=== PATIENT | female | born 1985 | race Hispanic/Latino ===

== ENCOUNTER 2018-05-21 17:35 | Emergency (ER) | payer SELFPAY ==
[2018-05-21 18:53] LABS: Absolute Lymphocytes (CBC) 2.1 K/uL (0.7-4.9); Absolute Monocytes 0.7 K/uL (0.1-1.3); Absolute Neutrophil 3.9 K/uL (1.8-8.0); Basophils % 0.9 % (0-1.3); Lymphocytes % 30.1 % (15.3-44.8); Monocytes % 10.9 % (3.3-12.3); RBC Red Blood Cell Count 4.17 M/uL (3.86-4.86)
[2018-05-21 19:15] LABS: ALT/SGPT 21 U/L (12-78); AST/SGOT 15 U/L (15-37); Albumin 4.1 g/dL (3.4-5.0); Alkaline Phosphatase 65 U/L (45-117); BUN Blood Urea Nitrogen 9 mg/dL (7-18); Bicarbonate 29 mmol/L (21-32); Bilirubin Direct 0.1 mg/dL (0-0.2); Bilirubin Total 0.4 mg/dL (0.2-1.0); Glucose Level 71 mg/dL (74-106); Lipase 112 U/L (73-393); Potassium 3.5 mmol/L (3.5-5.1); Sodium Level 138 mmol/L (136-145)
--- NOTE | 2018-05-21 19:47 | RAD REPORT ---
EXAM DESCRIPTION: CTAbdomen Pelvis W Contrast - 05/21/2018 7:32 pm CLINICAL HISTORY: Abdominal pain. LLQ pain COMPARISON: No comparisons TECHNIQUE: Biphasic CT imaging of the abdomen and pelvis was performed with 100 ml non-ionic IV cont rast. All CT scans are performed using dose optimization technique as appropriate and may include automated exposure control or mA/KV adjustment according to patient size. FINDINGS: The lung bases are clear. The liver, spleen, pancreas, adrenal glands and kidneys are within normal limits. No bowel obstruction, free air, free fluid or abscess. Prominent stool is present in the colon. The a ppendix is normal. No evidence of significant lymphadenopathy. No suspicious bony findings. Several left ovarian follicles noted. IMPRESSION: No acute intra-abdominal or pelvic finding.
--- NOTE | 2018-05-21 20:15 | EDPHYS ---
Physician Documentation [facility] Name: Chang Benoit Age: 32 yrs Sex: Female : 1985 Arrival Date: 05/21/2018 Time: 17:39 Bed 8 Private MD: Yamil Brito T ED Physician Mika Mello HPI: 05/21 18:32 This 32 yrs old Female presents to ER via Ambulatory with complaints of pm1 Abdominal Pain, Possible . 18:32 The patient presents with abdominal pain. Onset: The symptoms/episode began/occurred pm1 this morning. The symptoms do not radiate. Associated signs and symptoms: Pertinent negatives: nausea, vomiting, and diarrhea, dysuria, fever. The symptoms are described as sharp. Modifying factors: The symptoms are alleviated by nothing, the symptoms are aggravated by bimanual examination. Severity of pain: in the emergency department the pain is actually worse. The patient has not experienced similar symptoms in the past. The patient has been recently seen by a physician: Dr. Brito. Patient presenting today with LLQ abdominal pain that started this AM. Went to Dr. Brito's office for refill of her anxiety medications and was examined for the abdominal pain. Pelvic examination performed and patient with increased pain to left lower quadrant during bimanual examination to left side. Patient sent to the ER for rule out ectopic . Patient not with UPT done in the ER. Historical: - Allergies: 18:08 No Known Allergies; hb - Home Meds: 18:08 Xanax Oral [Active]; hb - PMHx: 18:08 Anxiety; hb - PSHx: 18:08 ankle - right; hb - Immunization history:: Adult Immunizations up to date. - Social history:: Smoking status: Patient/guardian denies using tobacco. - Ebola Screening: : No symptoms or risks identified at this time. ROS: 18:36 Constitutional: Negative for fever, chills, and weight loss, Eyes: Negative for injury, pm1 pain, redness, and discharge, ENT: Negative for injury, pain, and discharge, Neck: Negative for injury, pain, and swelling, Cardiovascular: Negative for chest pain, palpitations, and edema, Respiratory: Negative for shortness of breath, cough, wheezing, and pleuritic chest pain. 18:36 Back: Negative for injury and pain, : Negative for injury, bleeding, discharge, and swelling, MS/Extremity: Negative for injury and deformity, Skin: Negative for injury, rash, and discoloration, Neuro: Negative for headache, weakness, numbness, tingling, and seizure. 18:36 Abdomen/GI: Positive for abdominal pain, Negative for nausea, vomiting, and diarrhea. Exam: 18:36 Constitutional: This is a well developed, well nourished patient who is awake, alert, pm1 and in no acute distress. Head/Face: Normocephalic, atraumatic. Eyes: Pupils equal round and reactive to light, extra-ocular motions intact. Lids and lashes normal. Conjunctiva and sclera are non-icteric and not injected. Cornea within normal limits. Periorbital areas with no swelling, redness, or edema. ENT: Nares patent. No nasal discharge, no septal abnormalities noted. Tympanic membranes are normal and external auditory canals are clear. Oropharynx with no redness, swelling, or masses, exudates, or evidence of obstruction, uvula midline. Mucous membranes moist. Neck: Trachea midline, no thyromegaly or masses palpated, and no cervical lymphadenopathy. Supple, full range of motion without nuchal rigidity, or vertebral point tenderness. No Meningismus. Chest/axilla: Normal chest wall appearance and motion. Nontender with no deformity. No lesions are appreciated. Cardiovascular: Regular rate and rhythm with a normal S1 and S2. No gallops, murmurs, or rubs. Normal PMI, no JVD. No pulse deficits. Respiratory: Lungs have equal breath sounds bilaterally, clear to auscultation and percussion. No rales, rhonchi or wheezes noted. No increased work of breathing, no retractions or nasal flaring. 18:36 Back: No spinal tenderness. No costovertebral tenderness. Full range of motion. Skin: Warm, dry with normal turgor. Normal color with no rashes, no lesions, and no evidence of cellulitis. MS/ Extremity: Pulses equal, no cyanosis. Neurovascular intact. Full, normal range of motion. 18:36 Abdomen/GI: Inspection: abdomen appears normal, Bowel sounds: normal, Palpation: soft, mild abdominal tenderness, in the left lower quadrant, mass, is not appreciated, rebound tenderness, is not appreciated. 18:36 Neuro: Orientation: is normal, Motor: is normal, moves all fours, strength is normal, strength is 5/5 in all extremities, Sensation: is normal, no obvious gross deficits, Gait: is steady, at a normal pace, without difficulty. Vital Signs: 18:07 BP 152 / 102; Pulse 92; Resp 16; Temp 97.8; Pulse Ox 100% on R/A; Weight 53.98 kg; hb Height 5 ft. 1 in. (154.94 cm); Pain 7/10; 20:30 BP 130 / 90; Pulse 87; Resp 18; Pulse Ox 100% on R/A; tl2 18:07 Body Mass Index 22.48 (53.98 kg, 154.94 cm) hb MDM: 18:27 Patient medically screened. pm1 18:37 Data reviewed: vital signs. Data interpreted: Pulse oximetry: on room air is 100 %. pm1 Interpretation: normal. 20:13 Counseling: I had a detailed discussion with the patient and/or guardian regarding: the pm1 historical points, exam findings, and any diagnostic results supporting the discharge/admit diagnosis, lab results, radiology results, the need for outpatient follow up, to return to the emergency department if symptoms worsen or persist or if there are any questions or concerns that arise at home. 05/21 18:27 Order name: Urine Dipstick--Ancillary (enter results) 05/21 18:27 Order name: Urine --Ancillary (enter results) 05/21 18:31 Order name: Basic Metabolic Panel; Complete Time: 20:01 pm05/21 18:31 Order name: CBC with Diff; Complete Time: 20: pm05/21 18:31 Order name: Creatinine for Radiology; Complete Time: 20: pm05/21 18:31 Order name: Hepatic Function; Complete Time: 20:01 pm05/21 18:19 Order name: Urine Dipstick-Ancillary (obtain specimen); Complete Time: 18:21 pm05/21 18:19 Order name: Urine Test (obtain specimen); Complete Time: 18:21 pm05/21 18:31 Order name: Lipase; Complete Time: 20:01 pm05/21 18:31 Order name: IV Saline Lock; Complete Time: 18:34 pm05/21 18:31 Order name: Labs collected and sent; Complete Time: 18:34 pm1 05/21 18:31 Order name: CT Abd/Pelvis - W/Contrast: IV contrast only; Complete Time: 20:01 pm1 Administered Medications: 20:25 Drug: TORadol 30 mg Route: IVP; Infused Over: 2 mins; Site: right antecubital; tl1 20:54 Follow up: Response: No adverse reaction; Pain is decreased tl2 Disposition: 05/21/18 20:14 Discharged to Home. Impression: Unspecified abdominal pain. - Condition is Stable. - Discharge Instructions: Abdominal Pain, Adult. - Prescriptions for Diclofenac Sodium 75 mg Oral Tablet Sustained Release - take 1 tablet by ORAL route 2 times per day; 30 tablet. - Medication Reconciliation Form, Thank You Letter form. - Follow up: Emergency Department; When: As needed; Reason: Worsening of condition. Follow up: Private Physician; When: 2 - 3 days; Reason: Recheck today's complaints, Continuance of care, Re-evaluation by your physician. - Problem is new. - Symptoms have improved. Addendum: 05/24/2018 07:17 Co-signature as Attending Physician, Mika Mello MD I agree with the assessment and k dr plan of care. Signatures: Dispatcher [employer] EDMS Mika Mello MD MD [facility] Patti Busby RN RN tl1 Xiang Ledbetter NP CONCRETE VIBRATOR OPERATOR pm1 Dalia Jasso RN RN Chelsea Dias RN RN tl2 Corrections: (The following items were deleted from the chart) 05/21 20:54 20:14 05/21/2018 20:14 Discharged to Home. Impression: Unspecified abdominal pain. tl2 Condition is Stable. Forms are Medication Reconciliation Form, Thank You Letter, Antibiotic Education, Prescription Opioid Use. Follow up: Emergency Department; When: As needed; Reason: Worsening of condition. Follow up: Private Physician; When: 2 - 3 days; Reason: Recheck today's complaints, Continuance of care, Re-evaluation by your physician. Problem is new. Symptoms have improved. pm1
--- NOTE | 2018-05-21 20:15 | ER ---
Nurse's Notes [facility] Name: Chang Benoit Age: 32 yrs Sex: Female : 1985 Arrival Date: 05/21/2018 Time: 17:39 Bed 8 Private MD: Yamil Brito T Diagnosis: Unspecified abdominal pain Presentation: 05/21 18:05 Presenting complaint: Sent by Dr. Brito to r/o ectopic . Pt reports pain in LLQ hb and left lower back during exam at Dr. Brito's office, LMP 04/05/18. Transition of care: patient was not received from another setting of care. Onset of symptoms was May 21, 2018. Risk Assessment: Do you want to hurt yourself or someone else? Patient reports no desire to harm self or others. Care prior to arrival: None. 18:05 Method Of Arrival: Ambulatory hb 18:05 Acuity: ELSA 3 hb 18:37 Initial Sepsis Screen: Does the patient meet any 2 criteria? No. Patient's initial tl2 sepsis screen is negative. Does the patient have a suspected source of infection? No. Patient's initial sepsis screen is negative. Historical: - Allergies: 18:08 No Known Allergies; hb - Home Meds: 18:08 Xanax Oral [Active]; hb - PMHx: 18:08 Anxiety; hb - PSHx: 18:08 ankle - right; hb - Immunization history:: Adult Immunizations up to date. - Social history:: Smoking status: Patient/guardian denies using tobacco. - Ebola Screening: : No symptoms or risks identified at this time. Screenin:35 Abuse screen: Denies threats or abuse. Nutritional screening: No deficits noted. tl2 Tuberculosis screening: No symptoms or risk factors identified. Fall Risk None identified. Assessment: 18:35 General: Appears in no apparent distress. uncomfortable, Behavior is calm, cooperative, tl2 appropriate for age. Pain: Complains of pain in left lower quadrant. Neuro: Level of Consciousness is awake, alert, obeys commands, Oriented to person, place, time, situation. Cardiovascular: Denies chest pain. Respiratory: Airway is patent Respiratory effort is even, unlabored, Respiratory pattern is regular, symmetrical. GI: Bowel sounds present X 4 quads. Abd is soft Abdomen is tender to palpation in left lower quadrant Patient currently denies constipation, diarrhea, nausea, vomiting. : Denies burning with urination, vaginal bleeding. Derm: Skin is pink, warm \T\ dry. 19:30 Reassessment: Patient appears in no apparent distress at this time. Patient and/or tl2 family updated on plan of care and expected duration. Pain level reassessed. Patient is alert, oriented x 3, equal unlabored respirations, skin warm/dry/pink. 20:30 Reassessment: Patient appears in no apparent distress at this time. Patient and/or tl2 family updated on plan of care and expected duration. Pain level reassessed. Patient is alert, oriented x 3, equal unlabored respirations, skin warm/dry/pink. pt verbalized understanding of discharge instructions, need for follow up. Vital Signs: 18:07 BP 152 / 102; Pulse 92; Resp 16; Temp 97.8; Pulse Ox 100% on R/A; Weight 53.98 kg; hb Height 5 ft. 1 in. (154.94 cm); Pain 7/10; 20:30 BP 130 / 90; Pulse 87; Resp 18; Pulse Ox 100% on R/A; tl2 18:07 Body Mass Index 22.48 (53.98 kg, 154.94 cm) hb ED Course: 17:39 Patient arrived in ED. mr 17:40 Yamil Brito MD is Private Physician. mr 18:07 Triage completed. hb 18:08 Arm band placed on. hb 18:19 Xiang Ledbetter NP is PHCP. pm1 18:19 Mika Mello MD is Attending Physician. pm1 18:33 Radiology exam delayed due to lab results not completed at this time. (BUN/Creatinine). vm2 18:34 Chelsea Dias, GENARO is Primary Nurse. tl2 18:35 Patient has correct armband on for positive identification. Placed in gown. Bed in low tl2 position. Call light in reach. Side rails up X 1. Adult w/ patient. 18:35 Inserted saline lock: 20 gauge in right antecubital area, using aseptic technique. tl2 Blood collected. 19:01 Radiology exam delayed due to lab results not completed at this time. (BUN/Creatinine). nj 19:[address] via wheelchair. vm2 19:29 CT completed. Patient tolerated procedure well. Patient moved back from CT. vm2 19:32 CT Abd/Pelvis - W/Contrast: IV contrast only In Process Unspecified. EDMS 20:30 No provider procedures requiring assistance completed. IV discontinued, intact, tl2 bleeding controlled, No redness/swelling at site. Pressure dressing applied. Administered Medications: 20:25 Drug: TORadol 30 mg Route: IVP; Infused Over: 2 mins; Site: right antecubital; tl1 20:54 Follow up: Response: No adverse reaction; Pain is decreased tl2 Outcome: 20:14 Discharge ordered by MD. pm1 20:30 Discharged to home ambulatory, with family. tl2 20:30 Condition: stable 20:30 Discharge instructions given to patient, Instructed on discharge instructions, follow up and referral plans. Demonstrated understanding of instructions, follow-up care. 20:54 Patient left the ED. tl2 Signatures: Dispatcher [employer] EDAZ LamLoreta johnson mr BusbyPatti RN RN tl1 Xiang Ledbetter, LUCIAN ORACLE ETL DEVELOPER pm1 Dalia Jasso RN RN hb Knox, Taylor, RN RN tl2 Luis Eduardo Still [place] 2
[2018-05-21] MEDS ORDERED: KETOROLAC 30 MG/ML INJ ONE (20:26)
[2018-05-21 21:02] VITALS: TEMP 97.8; O2SAT 100
[2018-05-21 21:03] VITALS: BP 130/90
[2018-05-21 21:24] LABS: Urine Blood TRACE (NEG); Urine Glucose NEGATIVE (NEG); Urine Protein NEGATIVE (NEG); Urine Specific Gravity 1.015 (1.005-1.030)
== END 2018-05-21 20:54 | disposition home or self-care (01) ==
LOC: ER 17:35
DX: R10.32 Left lower quadrant pain (principal); F41.9 Anxiety disorder, unspecified
CPT/HCPCS: 36415; 74177; 80048; 80076; 81003; 81025; 83690; 85025; 96374; 99284; Q9967

== ENCOUNTER 2019-04-19 11:08 | Emergency (ER) | payer SELFPAY ==
--- NOTE | 2019-04-19 12:02 | ER ---
Nurse's Notes [facility] Name: Chang Benoit Age: 33 yrs Sex: Female : 1985 Arrival Date: 04/19/2019 Time: 11:10 Bed 12 Private MD: Diagnosis: Acute upper respiratory infection, unspecified;Acute suppurative otitis media Presentation: 04/19 11:20 Presenting complaint: Patient states: Nausea, productive cough, chills, headache and aj1 ear pain for the past 3 days. Transition of care: patient was not received from another setting of care. Onset of symptoms was 2018. Risk Assessment: Do you want to hurt yourself or someone else? Patient reports no desire to harm self or others. Initial Sepsis Screen: Does the patient meet any 2 criteria? HR > 90 bpm. No. Patient's initial sepsis screen is negative. Does the patient have a suspected source of infection? Yes: Productive cough/pneumonia. Care prior to arrival: None. 11:20 Method Of Arrival: Ambulatory aj1 11:20 Acuity: ELSA 4 aj1 Triage Assessment: 11:22 General: Appears in no apparent distress. comfortable, Behavior is calm, cooperative, aj1 appropriate for age. Pain: Pain currently is 8 out of 10 on a pain scale. EENT: Reports nasal congestion nasal discharge. Neuro: Level of Consciousness is awake, alert, obeys commands, Oriented to person, place, time, situation. Cardiovascular: Patient's skin is warm and dry. Respiratory: Reports cough that is productive, Airway is patent Respiratory effort is even, unlabored, Respiratory pattern is regular, symmetrical. GI: No signs and/or symptoms were reported involving the gastrointestinal system. : No signs and/or symptoms were reported regarding the genitourinary system. Derm: No signs and/or symptoms reported regarding the dermatologic system. Skin is pink, warm \T\ dry. normal. Musculoskeletal: Circulation, motion, and sensation intact. 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 - Social history:: Smoking status: Patient uses tobacco products, denies chronic smoking, but will smoke occasionally. - Ebola Screening: : Patient denies travel to an Ebola-affected area in the 21 days before illness onset. Screenin:24 Abuse screen: Denies threats or abuse. Denies injuries from another. Nutritional aj1 screening: No deficits noted. Tuberculosis screening: No symptoms or risk factors identified. Fall Risk None identified. Assessment: 11:24 Reassessment: see triage assessment. aj1 12:00 Reassessment: Patient appears in no apparent distress at this time. Patient and/or iw family updated on plan of care and expected duration. Pain level reassessed. Patient is alert, oriented x 3, equal unlabored respirations, skin warm/dry/pink. Vital Signs: 11:22 BP 118 / 74; Pulse 99; Resp 18; Temp 98.4; Pulse Ox 100% on R/A; Weight 56.7 kg (R); aj1 Height 5 ft. 1 in. (154.94 cm) (R); Pain 8/10; 11:22 Body Mass Index 23.62 (56.70 kg, 154.94 cm) aj1 ED Course: 11:10 Patient arrived in ED. as 11:22 Triage completed. aj1 11:22 Arm band placed on Patient placed in an exam room. aj1 11:24 Patient has correct armband on for positive identification. Bed in low position. Call aj1 light in reach. 11:24 No provider procedures requiring assistance completed. aj1 11:26 [facility] jr8 11:26 Shaun Mireles MD is Attending Physician. jr8 12:03 Antonia Lew RN is Primary Nurse. iw 12:08 Patient did not have IV access during this emergency room visit. iw Administered Medications: No medications were administered Outcome: 12:01 Discharge ordered by . jr8 12:08 Discharged to home ambulatory. iw 12:08 Condition: good 12:08 Discharge instructions given to patient, Instructed on discharge instructions, follow up and referral plans. medication usage, Demonstrated understanding of instructions, follow-up care, medications, Prescriptions given X 3. 12:09 Patient left the ED. iw Signatures: Oly Green RN RN aj1 Ann Mirza as Antonia Lew RN RN Osito Morocho PA PA jr8 Corrections: (The following items were deleted from the chart) 17:15 12:20 Reassessment: Patient appears in no apparent distress at this time. Patient iw and/or family updated on plan of care and expected duration. Pain level reassessed. Patient is alert, oriented x 3, equal unlabored respirations, skin warm/dry/pink. iw
--- NOTE | 2019-04-19 12:02 | EDPHYS ---
Physician Documentation [facility] Name: Chang Benoit Age: 33 yrs Sex: Female : 1985 Arrival Date: 04/19/2019 Time: 11:10 Bed 12 Private MD: ED Physician Shaun Mireles HPI: 04/19 11:58 This 33 yrs old Female presents to ER via Ambulatory with complaints of Flu jr8 Symptoms. 11:58 The patient reports fever, not measured (subjective). Onset: The symptoms/episode jr8 began/occurred gradually, 3 day(s) ago. Modifying factors: there are no obvious modifying factors. Associated signs and symptoms: Pertinent positives: arthralgias, cough, myalgias, nausea, runny nose, sore throat, headache . Severity of symptoms: At their worst the symptoms were moderate in the emergency department the symptoms are unchanged. The patient has not experienced similar symptoms in the past. The patient has not recently seen a physician. 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 - Social history:: Smoking status: Patient uses tobacco products, denies chronic smoking, but will smoke occasionally. - Ebola Screening: : Patient denies travel to an Ebola-affected area in the 21 days before illness onset. ROS: 11:58 Constitutional: Positive for body aches, chills, fatigue, fever. jr8 11:58 ENT: Positive for rhinorrhea, sinus congestion, sore throat. 11:58 Abdomen/GI: Positive for nausea, Negative for abdominal pain, vomiting, diarrhea, constipation, abdominal cramps, abdominal distension. 11:58 Neuro: Positive for headache. 11:58 All other systems are negative. Exam: 11:58 Eyes: Pupils equal round and reactive to light, extra-ocular motions intact. Lids and jr8 lashes normal. Conjunctiva and sclera are non-icteric and not injected. Cornea within normal limits. Periorbital areas with no swelling, redness, or edema. ENT: Nares patent. No nasal discharge, no septal abnormalities noted. Tympanic membrane on right side with dullness and erythema. External auditory canals are clear. Oropharynx with mild erythema. No swelling, or masses, exudates, or evidence of obstruction, uvula midline. Mucous membranes moist. Neck: Trachea midline, no thyromegaly or masses palpated, and no cervical lymphadenopathy. Supple, full range of motion without nuchal rigidity, or vertebral point tenderness. No Meningismus. Cardiovascular: Regular rate and rhythm with a normal S1 and S2. No gallops, murmurs, or rubs. Normal PMI, no JVD. No pulse deficits. Respiratory: Lungs have equal breath sounds bilaterally, clear to auscultation and percussion. No rales, rhonchi or wheezes noted. No increased work of breathing, no retractions or nasal flaring. Abdomen/GI: Soft, non-tender, with normal bowel sounds. No distension or tympany. No guarding or rebound. No evidence of tenderness throughout. Back: No spinal tenderness. No costovertebral tenderness. Full range of motion. Skin: Warm, dry with normal turgor. Normal color with no rashes, no lesions, and no evidence of cellulitis. MS/ Extremity: Pulses equal, no cyanosis. Neurovascular intact. Full, normal range of motion. Neuro: Awake and alert, GCS 15, oriented to person, place, time, and situation. Cranial nerves II-XII grossly intact. Motor strength 5/5 in all extremities. Sensory grossly intact. Cerebellar exam normal. Normal gait. Vital Signs: 11:22 BP 118 / 74; Pulse 99; Resp 18; Temp 98.4; Pulse Ox 100% on R/A; Weight 56.7 kg (R); aj1 Height 5 ft. 1 in. (154.94 cm) (R); Pain 8/10; 11:22 Body Mass Index 23.62 (56.70 kg, 154.94 cm) aj1 MDM: 11:27 Patient medically screened. [facility] [place] 12:00 Data reviewed: vital signs, nurses notes, lab test result(s), and as a result, I will [facility] [place] discharge patient. Data interpreted: Pulse oximetry: on room air is 100 %. Interpretation: normal. Counseling: I had a detailed discussion with the patient and/or guardian regarding: the historical points, exam findings, and any diagnostic results supporting the discharge/admit diagnosis, lab results, the need for outpatient follow up, a family practitioner. 04/19 11:24 Order name: Flu; Complete Time: 12:00 [facility] 04/19 11:24 Order name: Strep; Complete Time: 11:51 [facility] 04/19 11:47 Order name: Throat Culture EDMS Administered Medications: No medications were administered Disposition: 17:17 Co-signature as Attending Physician, Shaun Mireles MD. rn Disposition: 04/19/19 12:01 Discharged to Home. Impression: Acute upper respiratory infection, unspecified, Acute suppurative otitis media. - Condition is Stable. - Discharge Instructions: Otitis Media, Adult, Upper Respiratory Infection, Adult. - Prescriptions for Amoxicillin 875 mg Oral Tablet - take 1 tablet by ORAL route every 12 hours for 10 days; 20 tablet. Prednisone 20 mg Oral Tablet - take 1 tablet by ORAL route once daily for 5 days; 5 tablet. Guaifenesin AC 10- 100 mg/5 mL Oral Liquid - take 10 milliliter by ORAL route every 4 hours As needed; 240 milliliter. - Medication Reconciliation Form, Thank You Letter, Antibiotic Education, Prescription Opioid Use form. - Work release form (04/19/19 12:10). iw - Follow up: Private Physician; When: 1 week; Reason: Recheck today's complaints, Continuance of care, Re-evaluation by your physician. - Problem is new. - Symptoms have improved. Signatures: Dispatcher [employer] EDOly Hoyos RN RN aj1 Antonia Lew RN RN iw Nieto, Roman, MD MD rn Roszak, Josh, PA PA jr8 Corrections: (The following items were deleted from the chart) 12:09 12:01 04/19/2019 12:01 Discharged to Home. Impression: Acute upper respiratory iw infection, unspecified; Acute suppurative otitis media. Condition is Stable. Forms are Medication Reconciliation Form, Thank You Letter, Antibiotic Education, Prescription Opioid Use. Follow up: Private Physician; When: 1 week; Reason: Recheck today's complaints, Continuance of care, Re-evaluation by your physician. Problem is new. Symptoms have improved. jr8
[2019-04-19 12:16] VITALS: BP 118/74; TEMP 98.4; O2SAT 100
== END 2019-04-19 12:09 | disposition home or self-care (01) ==
LOC: ER 11:08
DX: H66.009 Acute suppurative otitis media without spontaneous rupture of ear drum, unspecified ear (principal)
CPT/HCPCS: 87070; 87081; 87804; 99282

== ENCOUNTER 2024-08-11 09:12 | Emergency (ER) | payer SELFPAY ==
[2024-08-11] MEDS ORDERED: IBUPROFEN 200 MG TAB PO ONE (09:47)
[2024-08-11] MEDS ORDERED: HYDROCODONE/APAP 5/325 MG TAB ONE (10:41)
--- NOTE | 2024-08-11 10:58 | RAD REPORT ---
Exam:Ankle Left 3 View HISTORY: left ankle pain FINDINGS: No fracture or dislocation is seen Lateral soft tissue swelling. 7 mm lucency with a sclerotic border distal tibia. This probably is benign. Follow-up x-ray in 3 forrest hs recommended to assess stability
--- NOTE | 2024-08-11 11:16 | EDPHYS ---
Physician Documentation [facility] Name: Chang Benoit Age: 38 yrs Sex: Female : 1985 Arrival Date: 08/11/2024 Time: 09:12 Bed 26 Private MD: ED Physician Jolynn Lew HPI: 08/11 09:26 This 38 yrs old Female presents to ER via Wheelchair with complaints of Ankle sw6 Injury - left. 09:26 The patient presents with decreased range of motion, an injury, pain, that is acute. sw6 The complaints affect the left ankle. Onset: The symptoms/episode began/occurred just prior to arrival. Context: resulted from the patient falling, down stairs. Associated signs and symptoms: Pertinent positives: swelling, Pertinent negatives: calf tenderness, fever. Modifying factors: the symptoms are aggravated by weight bearing, movement. The patient has not experienced similar symptoms in the past. The patient presents from home for eval for left ankle pain that started just prior to arrival when she fell down approximately one half flight of stairs. She did not hit her head. No loss of conscious. She is not taking blood thinners. She is unable to get up or bear weight due to pain and swelling of her left ankle. She did take a tramadol prior to arrival. No headache or neck pain. No arm pain. No other complaints. Here for evaluation.. 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 - Infectious Disease History:: Denies. - Social history:: Smoking status: Patient denies any tobacco usage or history of. ROS: 09:26 Constitutional: Negative for fever, chills, and weight loss, Cardiovascular: Negative sw6 for chest pain, palpitations, and edema, Respiratory: Negative for shortness of breath, cough, wheezing, and pleuritic chest pain, Abdomen/GI: Negative for abdominal pain, nausea, vomiting, diarrhea, and constipation, : MS/extremity: Positive for decreased range of motion, swelling, 09:26 All other systems are negative, Exam: 09:26 Constitutional: This is a well developed, well nourished patient who is awake, alert, sw6 and in no acute distress. Cardiovascular: Regular rate and rhythm with a normal S1 and S2. No gallops, murmurs, or rubs. Normal PMI, no JVD. No pulse deficits. Respiratory: Lungs have equal breath sounds bilaterally, clear to auscultation and percussion. No rales, rhonchi or wheezes noted. No increased work of breathing, no retractions or nasal flaring. Abdomen/GI: Soft, non-tender, with normal bowel sounds. No distension or tympany. No guarding or rebound. No evidence of tenderness throughout. Skin: Warm, dry with normal turgor. Normal color with no rashes, no lesions, and no evidence of cellulitis. Psych: Awake, alert, with orientation to person, place and time. Behavior, mood, and affect are within normal limits. 09:26 Musculoskeletal/extremity: Swelling and tenderness to the left lateral malleoli but none on the medial malleoli. Decreased range of motion of the left ankle due to pain. She is able to wiggle the toes of the left foot without difficulty.. Vital Signs: 09:24 BP 132 / 82; Pulse 80; Resp 16; Temp 98.4(O); Pulse Ox 100% on R/A; Weight 45.36 kg; ss Height 5 ft. 0 in. ; Pain 5/10; 11:36 BP 129 / 79; Pulse 76; Resp 18; Pulse Ox 100% on R/A; Pain 9/10; ld1 09:24 Body Mass Index 19.53 (45.36 kg, 152.4 cm) ss 09:24 Pain Scale: Adult ss 11:36 Pain Scale: Adult ld1 MDM: 09:25 Medical Screening Exam initiated 09:26 Differential diagnosis: fracture, sprain. Data reviewed: vital signs, nurses notes. 11:14 Data reviewed: radiologic studies, plain films. Independent interpretation of the 6 following test(s) in the Emergency Department X-Ray: My interpretation is no fracture. ED course: The patient is doing well in the ER. X-ray of her left ankle shows no acute osseous injuries. She was given an Kvng wrap to wear for comfort as well as crutches to use for ambulation. She remained stable here in the ER and is okay for discharge home with PCP follow-up.. 08/11 09:26 Order name: Ankle Left 3 View XRAY; Complete Time: 11:14 sw6 08/11 11:14 Interpretation: No acute disease. sw6 Administered Medications: 09:57 Drug: Ibuprofen PO 600 mg PO once Route: PO; ld1 10:43 Follow up: Response: No adverse reaction ld1 10:43 Drug: HYDROcodone-acetaminophen PO 5 mg-325 mg 1 tabs PO once Route: PO; ld1 Disposition Summary: 08/11/24 11:16 Discharge Ordered Notes: Location: Home sw6 Problem: new sw6 Symptoms: are unchanged sw6 Condition: Stable sw6 Diagnosis - Sprain of ankle sw6 Discharge Instructions: - Discharge Summary Sheet sw6 - Crutch Use, Adult, [id number] sw6 - RICE Therapy for Routine Care of Injuries, [id number] sw6 - Ankle Sprain, [id number] sw6 Forms: - Medication Reconciliation Form sw6 - Antibiotic Education sw6 - Prescription Opioid Use sw6 - Patient Portal Instructions sw6 - Leadership Thank You Letter sw6 Signatures: Dispatcher [employer] Cecily Wray RN RN ss Sims, Lauren, RN RN ld1 Jolynn Lew MD MD sw6
--- NOTE | 2024-08-11 11:16 | ER ---
Nurse's Notes [facility] Name: Chang Benoit Age: 38 yrs Sex: Female : 1985 Arrival Date: 08/11/2024 Time: 09:12 Bed 26 Private MD: Diagnosis: Sprain of ankle Presentation: 08/11 09:24 Chief complaint: Patient states: L ankle pain since this morning. Coronavirus screen: ss Client denies travel out of the [place] in the last 14 days. Ebola Screen: Patient denies exposure to infectious person. Patient denies travel to an Ebola-affected area in the 21 days before illness onset. Initial Sepsis Screen: Does the patient meet any 2 criteria? No. Patient's initial sepsis screen is negative. Does the patient have a suspected source of infection? No. Patient's initial sepsis screen is negative. Risk Assessment: Do you want to hurt yourself or someone else? Patient reports no desire to harm self or others. Onset of symptoms was August 11, 2024. 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 - Infectious Disease History:: Denies. - Social history:: Smoking status: Patient denies any tobacco usage or history of. Screenin:50 [facility] ED Fall Risk Assessment (Adult) History of falling in the last 3 months, ld1 including since admission No falls in past 3 months (0 pts) Confusion or Disorientation No (0 pts) Intoxicated or Sedated No (0 pts) Impaired Gait No (0 pts) Mobility Assist Device Used No (0 pt) Altered Elimination No (0 pt) Score/Fall Risk Level 0 - 2 = Low Risk Oriented to surroundings, Hourly rounding (assess needs \T\ fall precautionary measures) done. Abuse screen: Denies threats or abuse. Denies injuries from another. Nutritional screening: No deficits noted. Tuberculosis screening: No symptoms or risk factors identified. Assessment: 09:50 General: Appears in no apparent distress. comfortable, Behavior is calm, cooperative, ld1 appropriate for age. Pain: Complains of pain in left foot Pain does not radiate. Pain currently is 8 out of 10 on a pain scale. Quality of pain is described as throbbing, Pain began suddenly, Is continuous. Neuro: Level of Consciousness is awake, alert, obeys commands, Oriented to person, place, time, situation. Cardiovascular: Capillary refill < 3 seconds Patient's skin is warm and dry. Respiratory: Airway is patent Respiratory effort is even, unlabored. GI: Abdomen is flat, non-distended. : No signs and/or symptoms were reported regarding the genitourinary system. EENT: No signs and/or symptoms were reported regarding the EENT system. Derm: No signs and/or symptoms reported regarding the dermatologic system. Musculoskeletal: No signs and/or symptoms reported regarding the musculoskeletal system. Vital Signs: 09:24 BP 132 / 82; Pulse 80; Resp 16; Temp 98.4(O); Pulse Ox 100% on R/A; Weight 45.36 kg; ss Height 5 ft. 0 in. ; Pain 5/10; 11:36 BP 129 / 79; Pulse 76; Resp 18; Pulse Ox 100% on R/A; Pain 9/10; ld1 09:24 Body Mass Index 19.53 (45.36 kg, 152.4 cm) ss 09:24 Pain Scale: Adult ss 11:36 Pain Scale: Adult ld1 ED Course: 09:16 Patient arrived in ED. im 09:16 Jolynn Lew MD is Attending Physician. sw6 09:26 Triage completed. ss 09:26 Arm band placed on right wrist. ss 09:45 Ankle Left 3 View XRAY In Process Unspecified. EDMS 09:49 Roxanne Richards, GENARO is Primary Nurse. ld1 09:50 Patient has correct armband on for positive identification. Placed in gown. Bed in low ld1 position. Call light in reach. Side rails up X2. Pulse ox on. NIBP on. Door closed. Noise minimized. Warm blanket given. 09:50 No provider procedures requiring assistance completed. ld1 11:37 Patient did not have IV access during this emergency room visit. ld1 Administered Medications: 09:57 Drug: Ibuprofen PO 600 mg PO once Route: PO; ld1 10:43 Follow up: Response: No adverse reaction ld1 10:43 Drug: HYDROcodone-acetaminophen PO 5 mg-325 mg 1 tabs PO once Route: PO; ld1 Medication: 09:50 VIS not applicable for this client. ld1 Outcome: 11:16 Discharge ordered by . sw6 11:35 Discharged to home ambulatory, with crutches, with family, ld1 11:35 Condition: stable 11:35 Discharge instructions given to patient, Instructed on discharge instructions, follow up and referral plans. Demonstrated understanding of instructions, follow-up care, 11:37 Patient left the ED. ld1 Signatures: Dispatcher [employer] EDCecily Lomas RN RN ss Sims, Lauren, RN RN ld1 Shobha Augustin Sandra, MD MD sw6
[2024-08-11 11:41] VITALS: TEMP 98.4; O2SAT 100
[2024-08-11 11:43] VITALS: BP 129/79
== END 2024-08-11 11:37 | disposition home or self-care (01) ==
LOC: ER 09:12
DX: S93.402A Sprain of unspecified ligament of left ankle, initial encounter (principal)
CPT/HCPCS: 99283